=== PATIENT | female | born 1960 | race African-American/Black ===

== ENCOUNTER 2018-10-26 22:33 | Emergency (ER) | payer MEDICAID ==
[~2018-10-26] VITALS: Ht 167.6 cm; Wt 73.0 kg
[2018-10-27] MEDS ORDERED: ASPIRIN 81MG TABLET PO ONE (03:30)
[2018-10-27] MEDS ORDERED: PREDNISONE 20MG TABLET PO ONE (03:30)
[2018-10-27] MEDS ORDERED: ALBUTEROL (0.083%) 2.5MG/3ML NEB HHN ONE (03:30)
[2018-10-27 03:39] LABS: BASOPHILS % 0.9 % (0.0-2.0); EOSINOPHILS % 2.1 % (0.0-5.0); HEMATOCRIT. 39.2 % (36.0-48.0); HEMOGLOBIN. 12.8 g/dL (12.0-16.0); LYMPHOCYTES % 30.8 % (20.0-50.0); MEAN CORPUSCULAR HEMOGLOBIN 30.6 pg (28.0-32.0); MEAN CORPUSCULAR VOLUME 93.4 fL (81.0-99.0); MEAN PLATELET VOLUME 8.8 fl (7.4-10.4); MONOCYTES % 5.8 % (2.0-8.0); NEUTROPHILS % 60.4 % (40.0-76.0); PLATELET 175 x1000/uL (130-400); RED CELL DISTRIBUTION WIDTH 13.9 % (11.6-14.6)
[2018-10-27 03:41] LABS: CHLORIDE 110 mEq/L (98-107)
[2018-10-27 05:20] VITALS: BP 144/70
[2018-11-06] MEDS ORDERED: ALBU6.7H9 INH (19:34)
== END 2018-10-27 05:23 | disposition home or self-care (01) ==
LOC: ER 22:33
DX: R06.02 Shortness of breath (principal); R05 Cough; I10 Essential (primary) hypertension; Z87.891 Personal history of nicotine dependence
CPT/HCPCS: 36415; 71045; 80053; 83880; 84484; 85025; 93005; 94640; 99284; J7512; J7611

== ENCOUNTER 2018-12-01 21:58 | Emergency (ER) | payer MEDICAID ==
[~2018-12-01] VITALS: Ht 167.6 cm; Wt 82.0 kg
[~2018-12-01 21:58] MED LIST: ALBU6.7H9 INH
[2018-12-01] MEDS ORDERED: KETOROLAC 15MG/ML VIAL IV ONE (23:15)
[2018-12-01 23:20] LABS: BASOPHILS % 0.7 % (0.0-2.0); EOSINOPHILS % 3.3 % (0.0-5.0); HEMATOCRIT. 39.2 % (36.0-48.0); LYMPHOCYTES % 41.7 % (20.0-50.0); MEAN CORPUSCULAR HEMOGLOBIN 30.6 pg (28.0-32.0); MEAN CORPUSCULAR VOLUME 92.7 fL (81.0-99.0); MEAN PLATELET VOLUME 9.1 fl (7.4-10.4); MONOCYTES % 6.6 % (2.0-8.0); NEUTROPHILS % 47.7 % (40.0-76.0); PLATELET 182 x1000/uL (130-400); RED BLOOD CELL COUNT 4.23 mill/uL (4.2-5.4); RED CELL DISTRIBUTION WIDTH 13.8 % (11.6-14.6)
[2018-12-01 23:23] LABS: CHLORIDE 109 mEq/L (98-107)
[2018-12-02 04:39] VITALS: BP 120/65
== END 2018-12-02 04:38 | disposition home or self-care (01) ==
LOC: ER 21:58
DX: M94.0 Chondrocostal junction syndrome [Tietze] (principal); J44.9 Chronic obstructive pulmonary disease, unspecified; Z87.891 Personal history of nicotine dependence; Z79.899 Other long term (current) drug therapy
CPT/HCPCS: 36415; 71045; 80053; 84484; 85025; 85379; 93005; 96374; 99284; J1885

== ENCOUNTER 2018-12-20 09:47 | Emergency (ER) | payer MEDICAID ==
[~2018-12-20] VITALS: Ht 167.6 cm; Wt 84.4 kg
[2018-12-20] MEDS ORDERED: ALBUTEROL (0.083%) 2.5MG/3ML NEB HHN ONE (10:45)
[2018-12-20 11:42] VITALS: BP 128/78
== END 2018-12-20 11:43 | disposition home or self-care (01) ==
LOC: ER 09:47
DX: J44.1 Chronic obstructive pulmonary disease with (acute) exacerbation (principal); R03.0 Elevated blood-pressure reading, without diagnosis of hypertension
CPT/HCPCS: 71045; 94640; 99283; J7611; Z7610

== ENCOUNTER 2019-01-15 21:57 | Inpatient (IN) | payer MEDICAID ==
[~2019-01-15] VITALS: Ht 167.6 cm; Wt 88.9 kg
[2019-01-15] MEDS ORDERED: MAGNESIUM 2 G PREMIX 50 ML IV STA (23:02)
[2019-01-15] MEDS ORDERED: ALBUTEROL (0.083%) 2.5MG/3ML NEB HHN STA (23:02)
[2019-01-15] MEDS ORDERED: METHYLPREDNISOLONE SOD SUCC 125 MG/2 ML VIAL IV STA (23:02)
[2019-01-15] MEDS ORDERED: IPRATROPIUM BROMIDE (0.02%) 0.5MG/2.5ML NEB HHN STA (23:02)
[2019-01-15 23:35] LABS: BASOPHILS % 0.7 % (0.0-2.0); EOSINOPHILS % 4.1 % (0.0-5.0); HEMATOCRIT. 37.6 % (36.0-48.0); HEMOGLOBIN. 12.3 g/dL (12.0-16.0); LYMPHOCYTES % 38.7 % (20.0-50.0); MEAN CORPUSCULAR VOLUME 91.6 fL (81.0-99.0); MEAN PLATELET VOLUME 8.7 fl (7.4-10.4); MONOCYTES % 6.1 % (2.0-8.0); NEUTROPHILS % 50.4 % (40.0-76.0); PLATELET 191 x1000/uL (130-400); RED BLOOD CELL COUNT 4.11 mill/uL (4.2-5.4); RED CELL DISTRIBUTION WIDTH 13.6 % (11.6-14.6)
[2019-01-15 23:49] LABS: CHLORIDE 110 mEq/L (98-107)
[2019-01-16] MEDS ORDERED: LEVOFLOXACIN 750MG PREMIX 150 ML IV ONE (00:30)
[2019-01-16] MEDS ORDERED: FLUT1BLS9 IH (04:45)
[2019-01-16] MEDS ORDERED: ALBU05 NEB (04:45)
[2019-01-16 04:52] VITALS: BP 127/68
[2019-01-16 04:53] VITALS: BP 127/68
[2019-01-16] MEDS: SODIUM CHLORIDE 0.45% 1,000 ML IV SCH ×2 (06:21→20:41)
[2019-01-16] MEDS: ACETAMINOPHEN 325MG TABLET PO PRN ×2 (06:21→18:15)
[2019-01-16 08:00] VITALS: BP 130/70
[2019-01-16] MEDS: ENOXAPARIN 40MG/0.4ML SYR SUBCUT SCH (09:24)
[2019-01-16] MEDS: IPRATROPIUM/ALBUTEROL 0.5-3(2.5)MG/3ML NEB HHN SCH ×4 (09:29→21:30)
[2019-01-16] MEDS: PANTOPRAZOLE SODIUM 40 MG/VIAL IV SCH (09:50)
[2019-01-16] MEDS: METHYLPREDNISOLONE SOD SUCC 40 MG/ML VIAL IV SCH ×2 (10:01→20:41)
[2019-01-16] MEDS ORDERED: DIPHENHYDRAMINE 50MG/ML VIAL IV PRN (11:45)
[2019-01-16] MEDS ORDERED: HYDROCODONE/ACETAMINOPHEN 5/325MG TABLET PO PRN (11:45)
[2019-01-16] MEDS ORDERED: HYDRALAZINE 20MG/ML VIAL IV PRN (11:45)
[2019-01-16 12:00] VITALS: BP 129/69
[2019-01-16 12:16] LABS: BG CARBOXYHEMOGLOBIN 0.6 % (0.5-1.5); BG DEOXYHEMOGLOBIN 6.1 % (0.0-5.0); BG HCO3 ACT 24.4 mmol/L (22.0-26.0); BG METHEMOGLOBIN 0.3 % (0.0-1.5); BG OXYGEN SATURATION 93.8 % (92.0-98.5); BG PCO2 42.8 mmHg (35.0-45.0); BG PH 7.373 (7.350-7.450); BG PO2 68.1 mmHg (75.0-100.0); BG SAMPLE SITE RIGHT RADIAL; BG TOTAL HEMOGLOBIN 13.6 g/dL (12.0-18.0); BG VENT MODE ROOM AIR
[2019-01-16] MEDS: LEVOFLOXACIN 500MG TABLET PO SCH (13:05)
[2019-01-16] MEDS ORDERED: LORAZEPAM 2MG/ML CPJ IV PRN (17:00)
[2019-01-16] MEDS ORDERED: ONDANSETRON HCL 4MG/2ML INJ IV PRN (17:00)
[2019-01-16] MEDS ORDERED: IPRATROPIUM/ALBUTEROL 0.5-3(2.5)MG/3ML NEB HHN PRN (17:00)
[2019-01-16] MEDS ORDERED: DOCUSATE SODIUM 100MG CAPSULE PO PRN (17:00)
[2019-01-16 17:49] LABS: BASOPHILS % 0.8 % (0.0-2.0); CHLORIDE 108 mEq/L (98-107); HEMATOCRIT. 39.1 % (36.0-48.0); HEMOGLOBIN. 12.7 g/dL (12.0-16.0); LYMPHOCYTES % 8.2 % (20.0-50.0); MEAN CORPUSCULAR HEMOGLOBIN 29.8 pg (28.0-32.0); MEAN CORPUSCULAR VOLUME 91.9 fL (81.0-99.0); MEAN PLATELET VOLUME 9.2 fl (7.4-10.4); MONOCYTES % 1.8 % (2.0-8.0); NEUTROPHILS % 89.2 % (40.0-76.0); PLATELET 202 x1000/uL (130-400); RED BLOOD CELL COUNT 4.25 mill/uL (4.2-5.4); RED CELL DISTRIBUTION WIDTH 13.8 % (11.6-14.6)
[2019-01-16 17:51] LABS: PROTHROMBIN TIME 10.2 sec (9.6-11.0)
[2019-01-16 20:00] VITALS: BP 132/62
[2019-01-16] MEDS ORDERED: ATORVASTATIN CALCIUM 10MG TABLET PO SCH (21:00)
[2019-01-16] MEDS: BUDESONIDE 0.5MG/2ML NEB HHN SCH (21:29)
[2019-01-17] VITALS: BP 122/59
[2019-01-17 04:00] VITALS: BP 133/75
[2019-01-17] MEDS: IPRATROPIUM/ALBUTEROL 0.5-3(2.5)MG/3ML NEB HHN SCH ×2 (07:31→11:01)
[2019-01-17] MEDS: BUDESONIDE 0.5MG/2ML NEB HHN SCH (07:32)
[2019-01-17] MEDS: ENOXAPARIN 40MG/0.4ML SYR SUBCUT SCH (08:58)
[2019-01-17] MEDS: METHYLPREDNISOLONE SOD SUCC 40 MG/ML VIAL IV SCH (08:58)
[2019-01-17] MEDS: PANTOPRAZOLE SODIUM 40 MG/VIAL IV SCH (08:58)
[2019-01-17] MEDS: SODIUM CHLORIDE 0.45% 1,000 ML IV SCH (10:47)
[2019-01-17] MEDS: LEVOFLOXACIN 500MG TABLET PO SCH (11:12)
[2019-01-17 11:55] VITALS: BP 143/91
[2019-01-17] MEDS ORDERED: FAMOTIDINE 20MG TABLET PO SCH (21:00)
== END 2019-01-17 13:03 | disposition home or self-care (01) | DRG 140 ==
LOC: ER 21:57 → 7WST 01-16 00:53 → ENRESERV 01-16 03:41
PROVIDERS: ADMIT Internal Medicine; ATTEND Internal Medicine
DX: J44.1 Chronic obstructive pulmonary disease with (acute) exacerbation (principal); F14.20 Cocaine dependence, uncomplicated; E66.9 Obesity, unspecified; E78.5 Hyperlipidemia, unspecified; E86.0 Dehydration; R73.9 Hyperglycemia, unspecified; M43.10 Spondylolisthesis, site unspecified; Z79.899 Other long term (current) drug therapy; Z87.891 Personal history of nicotine dependence; Z68.31 Body mass index [BMI] 31.0-31.9, adult
CPT/HCPCS: 36415; 36600; 71045; 72100; 80048; 82375; 82805; 83036; 83880; 84484; 93005; 94618; 94640; 94644; 96365; 97162; 99285; C9113; J1650; J1956; J2920; J2930; J3475; J7611; J7620; J7626

== ENCOUNTER 2019-02-11 14:51 | Emergency (ER) | payer MEDICAID ==
[~2019-02-11] VITALS: Ht 165.1 cm; Wt 90.0 kg
[~2019-02-11 14:51] MED LIST changes: +ALBU05 NEB; +FLUT1BLS9 IH
[2019-02-11] MEDS ORDERED: ALBUTEROL (0.083%) 2.5MG/3ML NEB HHN STA (16:24)
[2019-02-11] MEDS ORDERED: IPRATROPIUM BROMIDE (0.02%) 0.5MG/2.5ML NEB HHN STA (16:24)
[2019-02-11 17:08] LABS: BASOPHILS % 0.7 % (0.0-2.0); EOSINOPHILS % 2.4 % (0.0-5.0); HEMATOCRIT. 39.3 % (36.0-48.0); HEMOGLOBIN. 13.2 g/dL (12.0-16.0); MEAN CORPUSCULAR HEMOGLOBIN 30.3 pg (28.0-32.0); MEAN CORPUSCULAR VOLUME 90.2 fL (81.0-99.0); MEAN PLATELET VOLUME 8.9 fl (7.4-10.4); MONOCYTES % 5.2 % (2.0-8.0); NEUTROPHILS % 68.7 % (40.0-76.0); PLATELET 155 x1000/uL (130-400); RED BLOOD CELL COUNT 4.36 mill/uL (4.2-5.4); RED CELL DISTRIBUTION WIDTH 13.5 % (11.6-14.6)
[2019-02-11 17:09] LABS: CHLORIDE 107 mEq/L (98-107)
[2019-02-11] MEDS ORDERED: KETOROLAC 30MG/ML VIAL IV ONE (19:30)
[2019-02-11] MEDS ORDERED: KETOROLAC 60MG/2ML VIAL IM ONE (19:45)
[2019-02-11 20:38] VITALS: BP 130/74
== END 2019-02-11 20:41 | disposition home or self-care (01) ==
LOC: ER 14:51
DX: J40 Bronchitis, not specified as acute or chronic (principal); J06.9 Acute upper respiratory infection, unspecified; Z87.891 Personal history of nicotine dependence
CPT/HCPCS: 36415; 71045; 80053; 83880; 84484; 85025; 93005; 94644; 96372; 99285; J1885; J7611; Z7610

== ENCOUNTER 2019-03-26 22:25 | Emergency (ER) | payer MEDICAID, MEDICARE ==
[~2019-03-26] VITALS: Ht 167.6 cm; Wt 93.9 kg
[2019-03-26] MEDS ORDERED: IPRATROPIUM BROMIDE (0.02%) 0.5MG/2.5ML NEB HHN STA (23:38)
[2019-03-26] MEDS ORDERED: ALBUTEROL (0.083%) 2.5MG/3ML NEB HHN STA (23:38)
[2019-03-27 00:02] LABS: BASOPHILS % 0.7 % (0.0-2.0); EOSINOPHILS % 4.3 % (0.0-5.0); HEMATOCRIT. 35.3 % (36.0-48.0); HEMOGLOBIN. 11.9 g/dL (12.0-16.0); LYMPHOCYTES % 37.9 % (20.0-50.0); MEAN CORPUSCULAR HEMOGLOBIN 30.6 pg (28.0-32.0); MEAN CORPUSCULAR VOLUME 90.5 fL (81.0-99.0); MEAN PLATELET VOLUME 8.7 fl (7.4-10.4); MONOCYTES % 5.9 % (2.0-8.0); NEUTROPHILS % 51.2 % (40.0-76.0); PLATELET 182 x1000/uL (130-400); RED CELL DISTRIBUTION WIDTH 14.2 % (11.6-14.6)
[2019-03-27 00:06] LABS: CHLORIDE 109 mEq/L (98-107)
[2019-03-27 00:10] LABS: ETHANOL BLOOD < 10 mg/dL
[2019-03-27 00:51] LABS: *AMPHETAMINES SCREEN URINE NEGATIVE (NEGATIVE); *BARBITURATES SCREEN URINE NEGATIVE (NEGATIVE); *BENZODIAZEPINES SCREEN URINE NEGATIVE (NEGATIVE); *COCAINE SCREEN URINE NEGATIVE (NEGATIVE); CANNABINOID URINE SCREEN NEGATIVE (NEGATIVE); METHADONE URINE SCREEN NEGATIVE (NEGATIVE); OPIATES URINE SCREEN NEGATIVE (NEGATIVE); PHENCYCLIDINE URINE SCREEN NEGATIVE (NEGATIVE)
[2019-03-27] MEDS ORDERED: MAGNESIUM 2 G PREMIX 50 ML IV ONE (01:00)
[2019-03-27 03:00] VITALS: BP 136/68
[2019-03-27] MEDS ORDERED: METHYLPREDNISOLONE SOD SUCC 125 MG/2 ML VIAL IV ONE (03:00)
== END 2019-03-27 03:10 | disposition home or self-care (01) ==
LOC: ER 22:25
DX: J44.1 Chronic obstructive pulmonary disease with (acute) exacerbation (principal); Z87.891 Personal history of nicotine dependence; J44.9 Chronic obstructive pulmonary disease, unspecified; E78.00 Pure hypercholesterolemia, unspecified; Z79.899 Other long term (current) drug therapy
CPT/HCPCS: 36415; 71045; 80053; 80305; 80320; 83880; 84484; 85025; 93005; 94640; 96365; 96366; 96375; 99284; J2930; J3475; J7611; Z7610; G0480

== ENCOUNTER 2019-05-23 01:08 | Emergency (ER) | payer MEDICARE ==
[~2019-05-23] VITALS: Ht 167.6 cm; Wt 95.0 kg
[2019-05-23] MEDS ORDERED: IPRATROPIUM BROMIDE (0.02%) 0.5MG/2.5ML NEB HHN STA ×2 (03:49→04:06)
[2019-05-23] MEDS ORDERED: ALBUTEROL (0.083%) 2.5MG/3ML NEB HHN STA ×2 (03:49→04:06)
[2019-05-23] MEDS ORDERED: ALBUTEROL (0.083%) 2.5MG/3ML NEB ONE ×2 (04:05→04:11)
[2019-05-23 04:33] LABS: BASOPHILS % 0.6 % (0.0-2.0); EOSINOPHILS % 2.5 % (0.0-5.0); HEMATOCRIT. 38.5 % (36.0-48.0); HEMOGLOBIN. 13.3 g/dL (12.0-16.0); LYMPHOCYTES % 22.1 % (20.0-50.0); MEAN CORPUSCULAR HEMOGLOBIN 31.1 pg (28.0-32.0); MEAN CORPUSCULAR VOLUME 89.9 fL (81.0-99.0); MEAN PLATELET VOLUME 8.7 fl (7.4-10.4); MONOCYTES % 4.8 % (2.0-8.0); PLATELET 158 x1000/uL (130-400); RED BLOOD CELL COUNT 4.28 mill/uL (4.2-5.4); RED CELL DISTRIBUTION WIDTH 13.8 % (11.6-14.6)
[2019-05-23 04:44] LABS: CHLORIDE 109 mEq/L (98-107)
[2019-05-23 05:42] VITALS: BP 140/75
== END 2019-05-23 06:18 | disposition home or self-care (01) ==
LOC: ER 01:08
DX: J44.1 Chronic obstructive pulmonary disease with (acute) exacerbation (principal); R03.0 Elevated blood-pressure reading, without diagnosis of hypertension; E78.00 Pure hypercholesterolemia, unspecified; Z79.51 Long term (current) use of inhaled steroids; Z79.899 Other long term (current) drug therapy; Z87.891 Personal history of nicotine dependence
CPT/HCPCS: 36415; 71045; 80053; 83880; 84484; 85025; 93005; 94640; 99285; J7610; Z7610

== ENCOUNTER 2019-06-06 16:47 | Emergency (ER) | payer MEDICARE ==
[~2019-06-06] VITALS: Ht 167.6 cm; Wt 100.0 kg
[2019-06-06 17:21] VITALS: BP 143/82
== END 2019-06-06 21:45 | disposition left against medical advice (07) ==
LOC: ER 16:47
DX: Z53.21 Procedure and treatment not carried out due to patient leaving prior to being seen by health care provider (principal)

== ENCOUNTER 2019-06-09 13:29 | Emergency (ER) | payer MEDICARE ==
[~2019-06-09] VITALS: Ht 167.6 cm; Wt 75.0 kg
[2019-06-09] MEDS ORDERED: FAMOTIDINE 20MG/2ML VIAL IV STA (14:11)
[2019-06-09] MEDS ORDERED: ONDANSETRON HCL 4MG/2ML INJ IV STA (14:11)
[2019-06-09] MEDS ORDERED: SODIUM CHLORIDE 0.9% 1,000 ML IV ONE (14:11)
[2019-06-09 14:44] LABS: EOSINOPHILS % 0.9 % (0.0-5.0); HEMATOCRIT. 41.4 % (36.0-48.0); LYMPHOCYTES % 25.2 % (20.0-50.0); MEAN CORPUSCULAR HEMOGLOBIN 30.3 pg (28.0-32.0); MEAN CORPUSCULAR VOLUME 89.7 fL (81.0-99.0); MEAN PLATELET VOLUME 8.5 fl (7.4-10.4); MONOCYTES % 4.3 % (2.0-8.0); NEUTROPHILS % 68.6 % (40.0-76.0); PLATELET 266 x1000/uL (130-400); RED BLOOD CELL COUNT 4.62 mill/uL (4.2-5.4); RED CELL DISTRIBUTION WIDTH 13.9 % (11.6-14.6)
[2019-06-09 14:45] LABS: CLARITY URINE CLEAR (CLEAR); COLOR URINE YELLOW (YELLOW); KETONES URINE NEGATIVE (NEGATIVE); LEUKOCYTE ESTERASE URINE 2+ (NEGATIVE); NITRITE URINE NEGATIVE (NEGATIVE); OCCULT BLOOD URINE NEGATIVE (NEGATIVE); PH URINE 7.5 (4.5-8.0); PROTEIN URINE NEGATIVE (NEGATIVE)
[2019-06-09 14:50] LABS: CHLORIDE 100 mEq/L (98-107)
[2019-06-09 14:52] LABS: INR 0.9; PROTHROMBIN TIME 10.2 sec (9.6-11.0)
[2019-06-09 14:55] LABS: ETHANOL BLOOD < 10 mg/dL
[2019-06-09 15:27] VITALS: BP 136/80
[2019-06-09 15:47] LABS: *BARBITURATES SCREEN URINE NEGATIVE (NEGATIVE); *BENZODIAZEPINES SCREEN URINE NEGATIVE (NEGATIVE); CANNABINOID URINE SCREEN NEGATIVE (NEGATIVE); METHADONE URINE SCREEN NEGATIVE (NEGATIVE); OPIATES URINE SCREEN NEGATIVE (NEGATIVE)
[2019-06-09 15:49] LABS: *AMPHETAMINES SCREEN URINE NEGATIVE (NEGATIVE); PHENCYCLIDINE URINE SCREEN NEGATIVE (NEGATIVE)
[2019-06-09 15:50] LABS: *COCAINE SCREEN URINE NEGATIVE (NEGATIVE)
== END 2019-06-09 17:32 | disposition home or self-care (01) ==
LOC: ER 13:29
DX: R10.11 Right upper quadrant pain (principal); R11.2 Nausea with vomiting, unspecified; J44.9 Chronic obstructive pulmonary disease, unspecified; I10 Essential (primary) hypertension; Z79.899 Other long term (current) drug therapy
CPT/HCPCS: 36415; 71045; 76705; 80053; 80305; 80320; 81003; 83690; 85025; 85610; 96374; 99284; J3490; J7030; G0480

== ENCOUNTER 2019-12-31 12:23 | Emergency (ER) | payer MEDICAID, MEDICARE ==
[~2019-12-31] VITALS: Ht 167.6 cm; Wt 107.0 kg
[2019-12-31] MEDS ORDERED: IPRATROPIUM/ALBUTEROL 0.5-3(2.5)MG/3ML NEB HHN ONE (13:15)
[2019-12-31 14:24] LABS: BASOPHILS % 1.2 % (0.0-2.0); HEMATOCRIT. 37.8 % (36.0-48.0); HEMOGLOBIN. 12.3 g/dL (12.0-16.0); LYMPHOCYTES % 33.4 % (20.0-50.0); MEAN CORPUSCULAR HEMOGLOBIN 29.3 pg (28.0-32.0); MEAN CORPUSCULAR VOLUME 89.7 fL (81.0-99.0); MEAN PLATELET VOLUME 8.9 fl (7.4-10.4); MONOCYTES % 4.9 % (2.0-8.0); NEUTROPHILS % 56.5 % (40.0-76.0); PLATELET 204 x1000/uL (130-400); RED BLOOD CELL COUNT 4.21 mill/uL (4.2-5.4); RED CELL DISTRIBUTION WIDTH 14.3 % (11.6-14.6)
[2019-12-31 14:31] LABS: CHLORIDE 104 mEq/L (98-107)
[2019-12-31 17:00] VITALS: BP 145/85
== END 2019-12-31 17:24 | disposition home or self-care (01) ==
LOC: ER 12:23
DX: J44.1 Chronic obstructive pulmonary disease with (acute) exacerbation (principal); R73.9 Hyperglycemia, unspecified; I10 Essential (primary) hypertension; E86.0 Dehydration; F41.9 Anxiety disorder, unspecified; Z79.899 Other long term (current) drug therapy
CPT/HCPCS: 36415; 70450; 71045; 80053; 83880; 84484; 85025; 93005; 94640; 99285; Z7610

== ENCOUNTER 2020-08-01 19:53 | Emergency (ER) | payer MEDICAID, MEDICARE ==
[~2020-08-01] VITALS: Ht 175.3 cm; Wt 105.0 kg
[2020-08-01] MEDS ORDERED: IBUPROFEN 600MG TABLET PO ONE (20:30)
[2020-08-01 22:40] VITALS: BP 136/84
[2020-08-01] MEDS ORDERED: METHOCARBAMOL 500MG TABLET PO ONE (23:00)
[2020-08-01] MEDS ORDERED: METH-653 MT (23:17)
== END 2020-08-02 00:15 | disposition home or self-care (01) ==
LOC: ER 19:53
DX: T88.1XXA Other complications following immunization, not elsewhere classified, initial encounter (principal); X58.XXXA Exposure to other specified factors, initial encounter; R50.9 Fever, unspecified; J44.9 Chronic obstructive pulmonary disease, unspecified; I10 Essential (primary) hypertension; Z79.899 Other long term (current) drug therapy
CPT/HCPCS: 99283